=== PATIENT | male | born 1960 | race Hispanic/Latino ===

== ENCOUNTER 2020-03-17 15:50 | Emergency (ER) | payer OTHER ==
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
--- NOTE | 2020-03-17 18:15 | EDPHYS ---
Physician Documentation [facility] Name: Farhad Arnold Age: 59 yrs Sex: Male : 1960 Arrival Date: 03/17/2020 Time: 15:51 Bed 13 Private MD: ED Physician Jagdish Hernández HPI: 03/17 18:27 This 59 yrs old Male presents to ER via Ambulatory with complaints of Sore kb Throat. 18:27 The patient presents with sore throat. The patient describes throat pain as constant. kb 18:29 Onset: The symptoms/episode began/occurred 1 week(s) ago. Severity of symptoms: At kb their worst the symptoms were moderate, in the emergency department the symptoms are unchanged. Modifying factors: The symptoms are alleviated by nothing, the symptoms are aggravated by swallowing, Patient's oral intake status: limited fluid intake, limited food intake, Denies contact with similarly ill indivduals. Associated signs and symptoms: Pertinent positives: Sore throat Pertinent negatives chills, cough, diarrhea, dysphagia, earache, fever, flu-like symptoms, headache, nausea, rhinorrhea, shortness of breath, vomiting. The patient has not experienced similar symptoms in the past. The patient has not recently seen a physician. Historical: - Allergies: 16:45 No Known Allergies; em - PMHx: 16:45 TIA; Hyperlipidemia; Hypertension; em - PSHx: 16:45 None; em - Immunization history:: Adult Immunizations not up to date. - Social history:: Smoking status: Patient denies any tobacco usage or history of. ROS: 18:17 Constitutional: Negative for fever, chills, and weight loss, Cardiovascular: Negative kb for chest pain, palpitations, and edema, Respiratory: Negative for shortness of breath, cough, wheezing, and pleuritic chest pain, Abdomen/GI: Negative for abdominal pain, nausea, vomiting, diarrhea, and constipation, Back: Negative for injury and pain, MS/Extremity: Negative for injury and deformity, Skin: Negative for injury, rash, and discoloration, Neuro: Negative for headache, weakness, numbness, tingling, and seizure. 18:17 ENT: Positive for sore throat. Exam: 18:17 Constitutional: This is a well developed, well nourished patient who is awake, alert, kb and in no acute distress. Head/Face: Normocephalic, atraumatic. Chest/axilla: Normal chest wall appearance and motion. Nontender with no deformity. No lesions are appreciated. Cardiovascular: Regular rate and rhythm with a normal S1 and S2. No gallops, murmurs, or rubs. Normal PMI, no JVD. No pulse deficits. Respiratory: Lungs have equal breath sounds bilaterally, clear to auscultation and percussion. No rales, rhonchi or wheezes noted. No increased work of breathing, no retractions or nasal flaring. Abdomen/GI: Soft, non-tender, with normal bowel sounds. No distension or tympany. No guarding or rebound. No evidence of tenderness throughout. Skin: Warm, dry with normal turgor. Normal color with no rashes, no lesions, and no evidence of cellulitis. MS/ Extremity: Pulses equal, no cyanosis. Neurovascular intact. Full, normal range of motion. Neuro: Awake and alert, GCS 15, oriented to person, place, time, and situation. Cranial nerves II-XII grossly intact. Motor strength 5/5 in all extremities. Sensory grossly intact. Cerebellar exam normal. Normal gait. 18:17 ENT: Posterior pharynx: Airway: normal, no evidence of obstruction, Tonsils: are normal in appearance, Uvula: normal, midline, swelling, is not appreciated, erythema, that is moderate, exudate, is not appreciated. Vital Signs: 16:41 BP 142 / 72; Pulse 65; Resp 18; Temp 98.7(O); Pulse Ox 99% on R/A; Weight 86.18 kg; em Height 5 ft. 5 in. (165.10 cm); Pain 2/10; 16:41 Body Mass Index 31.62 (86.18 kg, 165.10 cm) em MDM: 16:43 Patient medically screened. kb 18:13 Data reviewed: vital signs, nurses notes. Data interpreted: Pulse oximetry: on room air kb is 99 %. Interpretation: normal. Counseling: I had a detailed discussion with the patient and/or guardian regarding: the historical points, exam findings, and any diagnostic results supporting the discharge/admit diagnosis, lab results, the need for outpatient follow up, a family practitioner, to return to the emergency department if symptoms worsen or persist or if there are any questions or concerns that arise at home. 03/17 16:42 Order name: Strep; Complete Time: 18:13 kb 03/17 18:11 Order name: Throat Culture EDMS Administered Medications: 18:30 Drug: GI Cocktail without - (Maalox Suspension 30 ml, Lidocaine Liquid 2 % 15 jl7 ml) Route: PO; 18:35 Follow up: Response: Medication administered at discharge. jl7 Disposition: 03/17/20 18:14 Discharged to Home. Impression: Pain in throat. - Condition is Stable. - Discharge Instructions: Sore Throat, [id number]. - Medication Reconciliation Form, Thank You Letter, Antibiotic Education, Prescription Opioid Use form. - Follow up: Emergency Department; When: As needed; Reason: Worsening of condition. Follow up: Private Physician; When: 2 - 3 days; Reason: Recheck today's complaints, Continuance of care, Re-evaluation by your physician. Addendum: 03/21/2020 03:31 Co-signature as Attending Physician, Jagdish Hernández MD. m a2 Signatures: Dispatcher [employer] EDZohreh Chiu, GROUNDS MAINTENANCE SUPERVISOR-C GROUNDS MAINTENANCE SUPERVISOR-CkTirso Martinez, RN RN em Demetrius Arias RN RN jl7 Jagdish Hernández MD MD ma2 Corrections: (The following items were deleted from the chart) 03/17 18:37 18:14 03/17/2020 18:14 Discharged to Home. Impression: Pain in throat. Condition is jl7 Stable. Forms are Medication Reconciliation Form, Thank You Letter, Antibiotic Education, Prescription Opioid Use. Follow up: Emergency Department; When: As needed; Reason: Worsening of condition. Follow up: Private Physician; When: 2 - 3 days; Reason: Recheck today's complaints, Continuance of care, Re-evaluation by your physician. kb
--- NOTE | 2020-03-17 18:15 | ER ---
Nurse's Notes [facility] Name: Farhad Arnold Age: 59 yrs Sex: Male : 1960 Arrival Date: 03/17/2020 Time: 15:51 Bed 13 Private MD: Diagnosis: Pain in throat Presentation: 03/17 16:41 Chief complaint: Patient states: feels like he has blisters on the right side of his em tongue for 1 week, also reports pain when swallowing, denies fever or other symptoms. Coronavirus screen: Client denies travel out of the [place] in the last 14 days. Ebola Screen: Patient negative for fever greater than or equal to 101.5 degrees Fahrenheit, and additional compatible Ebola Virus Disease symptoms Patient denies exposure to infectious person. Patient denies travel to an Ebola-affected area in the 21 days before illness onset. No symptoms or risks identified at this time. Initial Sepsis Screen: Does the patient meet any 2 criteria? No. Patient's initial sepsis screen is negative. Does the patient have a suspected source of infection? No. Patient's initial sepsis screen is negative. Risk Assessment: Do you want to hurt yourself or someone else? Patient reports no desire to harm self or others. Onset of symptoms was March 11, 2020. 16:41 Method Of Arrival: Ambulatory em 16:41 Acuity: GILA 4 em Historical: - Allergies: 16:45 No Known Allergies; em - PMHx: 16:45 TIA; Hyperlipidemia; Hypertension; em - PSHx: 16:45 None; em - Immunization history:: Adult Immunizations not up to date. - Social history:: Smoking status: Patient denies any tobacco usage or history of. Screenin:00 Abuse screen: Denies threats or abuse. Denies injuries from another. Nutritional jl7 screening: No deficits noted. Tuberculosis screening: No symptoms or risk factors identified. Fall Risk None identified. Assessment: 18:00 General: Appears in no apparent distress. uncomfortable, Behavior is calm, cooperative, jl7 appropriate for age. Pain: Complains of pain in throat Pain currently is 2 out of 10 on a pain scale. Neuro: Level of Consciousness is awake, alert, obeys commands, Oriented to person, place, time, situation. Cardiovascular: Patient's skin is warm and dry. Respiratory: Airway is patent Respiratory effort is even, unlabored, Respiratory pattern is regular, symmetrical. EENT: Throat is clear. Derm: Skin is pink, warm \T\ dry. Vital Signs: 16:41 BP 142 / 72; Pulse 65; Resp 18; Temp 98.7(O); Pulse Ox 99% on R/A; Weight 86.18 kg; em Height 5 ft. 5 in. (165.10 cm); Pain 2/10; 16:41 Body Mass Index 31.62 (86.18 kg, 165.10 cm) em ED Course: 15:51 Patient arrived in ED. as 15:55 Zohreh Ayala FNP-C [facility] kb 15:55 Jagdish Hernández MD is Attending Physician. kb 16:44 Triage completed. em 16:45 Arm band placed on. em 17:47 Demetrius Arias, GRACE is Primary Nurse. jl7 18:00 Patient has correct armband on for positive identification. Bed in low position. Call jl7 light in reach. Side rails up X 1. 18:00 Strep swab sent to lab. jl7 18:37 No provider procedures requiring assistance completed. Patient did not have IV access jl7 during this emergency room visit. Administered Medications: 18:30 Drug: GI Cocktail without - (Maalox Suspension 30 ml, Lidocaine Liquid 2 % 15 jl7 ml) Route: PO; 18:35 Follow up: Response: Medication administered at discharge. jl7 Outcome: 18:14 Discharge ordered by . kb 18:37 Discharged to home ambulatory. jl7 18:37 Condition: stable 18:37 Discharge instructions given to patient, family, Instructed on discharge instructions, follow up and referral plans. Demonstrated understanding of instructions, follow-up care. 18:37 Patient left the ED. jl7 Signatures: Zohreh Ayala FNP-C FNP-Tirso Jesus, RN RN em Jennifer Gunderson as Demetrius Arias, GRACE EDWARDS jl7
[2020-03-17] MEDS ORDERED: MAGNES/ALUMIN/SIMET 30ML UCUP ONE (18:40)
[2020-03-17 20:07] VITALS: BP 142/72; TEMP 98.7; O2SAT 99
== END 2020-03-17 18:37 | disposition home or self-care (01) ==
LOC: ER 15:50
DX: R07.0 Pain in throat (principal); I10 Essential (primary) hypertension
CPT/HCPCS: 87070; 87081; 99283